=== PATIENT | male | born 1975 | race American Indian/Alaskan Native ===

== ENCOUNTER 2017-08-02 15:43 | Emergency (ER) | payer SELFPAY ==
--- NOTE | 2017-08-02 19:35 | Emergency Department Report ---
HPI - General Chief Complaint: Earache Time Seen by Provider: 08/02/17 18:49 - HPI HPI: Patient reports that he's been having ear ring in since 2007 2 both ears. He said he had a urine test done and they said he has a minimal hearing loss in his right ear otherwise he said he does not have any difficulty hearing. Denies any trauma. Denies any dizziness, nausea or vomiting. Denies any nasal congestion or drainage. Denies any headache. He says that he has appointment with his primary care doctor next month to address the problem. Patient's with blood pressure of 149/104 and he said he does not have a history of 5 blood pressure nor does he have any medical problems. Patient reports that he has never had a CT scan of his head. He denies any pain. ED Past Medical Hx - Past Medical History Previous Medical History?: No - Surgical History Past Surgical History?: No - Family History Family history: no significant - Social History Smoking Status: Never Smoker Substance Use Type: None - Medications Home Medications: Home Medications Medication Instructions Recorded Confirmed Last Taken Type Amoxicillin/K Clav Tab [Augmentin 1 tab PO Q12HR 10 Days #20 tab 08/02/17 Unknown Rx 875 mg] Cetirizine HCl [ZyrTEC] 10 mg PO QAM 14 Days #14 capsule 08/02/17 Unknown Rx Fluticasone [Flonase] 1 spray NS QDAY 14 Days #1 bottle 08/02/17 Unknown Rx ED Review of Systems ROS: Stated complaint: RINGING IN EARS Other details as noted in HPI Comment: All other systems reviewed and negative Constitutional: no symptoms reported Eyes: denies: eye pain, eye discharge, vision change ENT: other (ringing to both ears). denies: ear pain, throat pain, dental pain, hearing loss, epistaxis, congestion Respiratory: no symptoms reported Cardiovascular: denies: chest pain, palpitations, dyspnea on exertion, edema, syncope, paroxysmal nocturnal dyspnea Gastrointestinal: denies: abdominal pain, nausea, vomiting Musculoskeletal: denies: back pain, arthralgia, myalgia Skin: denies: rash Neurological: denies: headache, weakness, numbness, paresthesias, confusion, abnormal gait, vertigo Physical Exam - Physical Exam Vital Signs: Vital Signs 08/02/17 15:46 Temperature 97.2 F L Pulse Rate 64 Respiratory 16 Rate Blood Pressure 149/104 O2 Sat by Pulse 100 Oximetry Vital Signs 08/02/17 08/02/17 15:46 21:30 Temperature 97.2 F L Pulse Rate 64 Respiratory 16 Rate Blood Pressure 149/104 Blood Pressure 140/82 [Left] O2 Sat by Pulse 100 Oximetry General: This is a 41-year-old male well-nourished well-developed in no acute distress. Physical Exam: Head: Normocephalic, atraumatic, no abrasion, no bruising and no contusion. Eyes: Biateral pupils equal and reactive to light, bilateral EOM intact.. Bilateral conjunctival and sclera without injection, normal accommodation. No nystagmus Mouth: Moist, no pharyngeal exudate or erythema. No peritonsillar abscesses. Uvula is midline and oral airways patent. Ears: Bilateral TM congested without erythema. Bilateral EAC without any redness swelling or drainage. No mastoid bone tenderness Nose: Bilateral nasal turbinates congested with erythema ,no drainage. Maxillary and frontal sinuses non- tender to palpate. Neck: Supple, No Cervical adenopathy, full range of motion and no C-spine tenderness. No swelling or tracheal deviation normal reflexes Cardiovascular: S1, S2. Regular rate and rhythm. No murmur. Capillary refill is less then 3 seconds. Lungs: Clear to auscultate bilaterally. No rhonchi, wheezes or rales. No chest wall tenderness. No chest contusion. No bruising to chest. MSK: Strength 5/5 in all extremities. No joint deformity or crepitus. Normal inspection. Full range of motion to all extremities. No laceration, abrasion or ecchymotic area noted. Abdomen: Non-tender to palpate in all quadrants, no guarding or rebound tenderness, positive bowel sounds in all quadrants. No CVA tenderness. No hernia, bruit or mass. No rigidity or distention. Extremities: No clubbing, cyanosis or edema. +2 pulses. No neurovascular compromise. Ambulates without any difficulties Skin: Clean, dry and intact. No rash or lesions. Neurological: GCS at 15, Pt is alert and oriented 3 speech is clear . Bilateral hand coil tester strong and equal. Normal gait. Negative Romberg and no pronator drift. Normal Reflexes. No motor or sensory deficit Psych: Normal mood and behavior ED Course Vital Signs 08/02/17 15:46 Temperature 97.2 F L Pulse Rate 64 Respiratory 16 Rate Blood Pressure 149/104 O2 Sat by Pulse 100 Oximetry Vital Signs 08/02/17 08/02/17 15:46 21:30 Temperature 97.2 F L Pulse Rate 64 Respiratory 16 Rate Blood Pressure 149/104 Blood Pressure 140/82 [Left] O2 Sat by Pulse 100 Oximetry - Reevaluation(s) Reevaluation #1: 08/02/17 21:33 Patient stable throughout ED stay blood pressure is better ED Medical Decision Making - Radiology Data Radiology results: report reviewed CT scan of the head/brain without contrast shows negative unenhanced CT of the brain. Minimal patchy mucosal disease in the ethmoid air cells. Visualized portion of the paranasal sinusrs otherwise appear normal. Ventricles are normal size and are midline. No evidence of skull fracture. Mastoid air cell is clear. No abnormal extra axial fluid collection or masses are seen. - Medical Decision Making ED course: Patient here complaining ring into ears 8 years without any hearing loss noted by himself but reports that he had went a few years ago to get hearing test done and they told him that he had minimal hearing loss in his right ear. He denies any headache. Neurologically intact, had exam is normal and ear bilaterally with congestion without any erythema. CT scan of the head/ brain without contrast shows no intracranial abnormalities and no extra-axial masses or fluid collection seen. Patient with minimal patchy mucosal disease in ethmoid air cell. I discussed results of CT scan and patient and I told him he will need to follow up with ear nose and throat. He does have his own primary care physician which she has an appointment with next month. Patient was understanding of diagnosis, treatment plan and need to follow-up with ear nose and throat for further evaluation of Tinnitus. Discharged from emergency room a prescription for Augmentin for ethmoid sinus disease. Critical care attestation.: If time is entered above; I have spent that time in minutes in the direct care of this critically ill patient, excluding procedure time. ED Disposition Clinical Impression: Tinnitus of both ears Ethmoidal sinusitis Qualifiers: Chronicity: unspecified Qualified Code(s): J32.2 - Chronic ethmoidal sinusitis Disposition: - TO HOME OR SELFCARE Is pt being admited?: No Does the pt Need Aspirin: No Condition: Stable Instructions: Sinusitis (ED) Additional Instructions: Please follow-up with your primary care physician as scheduled Please see printed information on tinnitus which is also called ringing of ears Your CT scan showed a you have sinus inflammation and please take an EDC tibiotic as prescribed Increase her fluid intake Take Zyrtec and Flonase Please see information on ear nose and throat doctor, he will need to follow-up with ear nose and throat for ringing in both ears for further evaluation. Please call tomorrow to schedule an appointment Prescriptions: Amoxicillin/K Clav Tab [Augmentin 875 mg] 1 tab PO Q12HR 10 Days #20 tab Cetirizine HCl [ZyrTEC] 10 mg PO QAM 14 Days #14 capsule Fluticasone [Flonase] 1 spray NS QDAY 14 Days #1 bottle Referrals: HELEN MORALES MD [Primary Care Provider] - 3-5 Days your ,primary care physician [Other] - 3-5 Days COOPER WILL MD [Staff Physician] - 2-3 Days Forms: Work/School Release Form(ED)
--- NOTE | 2017-08-02 20:14 | Cat Scan Report ---
FINAL REPORT PROCEDURE: CT HEAD/BRAIN WO CON TECHNIQUE: Computerized tomography of the head was performed without contrast material. HISTORY: ring in ears x 8 years which has worsen x2 days COMPARISON: No prior studies are available for comparison. FINDINGS: Brain: Brain density appears normal. No evidence of intracranial hemorrhage. No parenchymal hemorrhage, mass lesions or mass effect are seen. No abnormal extraxial fluid collects or masses are seen. Ventricles: Ventricles are normal size and are midline. Bone Windows: No evidence of skull fracture. Paranasal sinuses: There is minimal patchy mucosal disease in ethmoid air cells. Visualized portions of the paranasal sinuses otherwise appear clear. Mastoid air cells: Clear IMPRESSION: Negative unenhanced CT of the brain. Minimal paranasal sinus disease as described.
[2017-08-02 21:31] VITALS: BP 140/82
== END 2017-08-02 21:45 | disposition home or self-care (01) ==
LOC: ED 15:43
DX: J32.2 Chronic ethmoidal sinusitis (principal); H93.13 Tinnitus, bilateral
CPT/HCPCS: 70450; 99283